=== PATIENT | male | born 1995 | race Caucasian/White ===

== ENCOUNTER 2023-08-18 09:30 | Outpatient (CLI) | payer OTHER ==
--- NOTE | 2023-08-18 20:25 | XRAY Report ---
PROCEDURE: Hand 3+V RT INDICATIONS: THUMB PAIN, RIGHT TECHNIQUE: 3 view(s) of the hand(s) acquired. COMPARISON: None FINDINGS: Bones: No fractures or dislocations. No suspicious bony lesions. Soft tissues: No suspicious soft tissue calcifications. IMPRESSION: Unremarkable hand radiographs Reviewed by: Dilip Arenas MD on 08/18/2023 7:23 PM AKDT Approved by: Dilip Arenas MD on 08/18/2023 7:23 PM AKDT Station ID: [id number]
== END 2023-08-18 09:45 | disposition home or self-care (01) ==
LOC: DI.N 09:30
PROVIDERS: ATTEND Specialist
DX: M79.644 Pain in right finger(s) (principal)

== ENCOUNTER 2023-10-17 07:30 | Outpatient (CLI) | payer OTHER ==
[2023-10-17 22:22] LABS: CHLAMYDIA TRACHOMATIS DNA NEGATIVE (NEGATIVE); NEISSERIA GONORRHOEAE DNA NEGATIVE (NEGATIVE); TRICHOMONAS VAGINALIS DNA NEGATIVE (NEGATIVE)
== END 2023-10-17 07:45 | disposition home or self-care (01) ==
LOC: LAB.N 07:30
PROVIDERS: ATTEND Physician Assistant Medical
DX: N30.00 Acute cystitis without hematuria (principal)
CPT/HCPCS: 87086; 87491; 87591; 87661